=== PATIENT | male | born 1950 | race Caucasian/White ===

== ENCOUNTER → 2019-03-10 12:41 | Outpatient (CLI) | payer MEDICARE, OTHER, SELFPAY ==
--- NOTE | 2019-03-10 | DI.RAD.S_ITS ---
PROCEDURE: XR HAND LT MIN 3V INDICATIONS: LEFT HAND PAIN TECHNIQUE: 3 views of the hand(s) acquired. COMPARISON: None. FINDINGS: Bones: No fractures or dislocations. Osteoarthritic changes along radial aspect of left wrist are seen most prominent involving first CMC joint. No gross bony erosive changes Carpal bones are normally aligned. No suspicious bony lesions. Soft tissues: No suspicious soft tissue calcifications. 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 No fracture or dislocation. No bony erosive changes. Dictated by: Avinash Fuentes M.D. on 03/10/2019 at 17:03 Approved by: Avinash Fuentes M.D. on 03/10/2019 at 17:04
== END ==
PROVIDERS: PCP Family Medicine; Visit Provider Family Medicine
DX: M79.642 Pain in left hand (principal); M18.12 Unilateral primary osteoarthritis of first carpometacarpal joint, left hand
CPT/HCPCS: 73130

== ENCOUNTER → 2020-10-29 12:24 | Outpatient (CLI) | payer MEDICARE, OTHER, SELFPAY ==
--- NOTE | 2020-10-29 | DI.US.S_ITS ---
PROCEDURE: US SCROTUM INDICATIONS: SCROTAL PAIN TECHNIQUE: Real-time scanning was performed of the scrotum and testicles, with image documentation. Color and pulse Doppler interrogation was performed of both testicles. COMPARISON: None. FINDINGS: Right: Testicle is normal in size at 3.4 x 2.7 x 1.5 cm, and homogenous in echotexture. Epididymis is mildly heterogenous. Unremarkable in overall size and morphology. No hydrocele or varicoceles. Overlying scrotal skin is normal in thickness. Left: Testicle is normal in size at 2.6 x 2.1 x 1.7 cm, and homogeneous in echotexture. Epididymis is normal in overall size and morphology. No hydrocele or varicoceles. Overlying scrotal skin is normal in thickness. Doppler: Color and pulse Doppler demonstrate normal and symmetric arterial flow in both testicles. The technologist was unable to demonstrate venous flow in the left testicle. IMPRESSION: Left testicle is slightly smaller compared to the right, as above. Although there is good arterial vascularity in both testes, the technologist was unable to demonstrate venous flow in the left testicle, of uncertain clinical significance Dictated by: Logan Blanco M.D. on 10/29/2020 at 17:02 Approved by: Logan Blanco M.D. on 10/29/2020 at 17:11
== END ==
PROVIDERS: PCP Family Medicine; Referring Provider Urology; Visit Provider Urology
DX: N50.819 Testicular pain, unspecified (principal); N50.82 Scrotal pain
CPT/HCPCS: 76870

== ENCOUNTER → 2021-01-21 09:04 | Outpatient (CLI) | payer MEDICARE, OTHER, SELFPAY ==
--- NOTE | 2021-01-21 | DI.CT.S_ITS ---
PROCEDURE: CT LUMBAR SPINE WO CON INDICATIONS: ABDOMINAL PAIN AND LOW BACK PAIN TECHNIQUE: Noncontrast 3 mm thick sections acquired from the T12 level to the sacrum. Sagittal and coronal reformats were constructed. For radiation dose reduction, the following was used: automated exposure control. COMPARISON: [facility], CT, CT ABDOMEN WO CON, 01/21/2021, 9:14. FINDINGS: Image quality: Excellent. Bones: No acute vertebral body compression fractures. No suspicious lytic or blastic bony lesions. No pars defects. Scoliotic curvature is seen, with a primary levoconvex thoracolumbar component. There is minimal retrolisthesis seen at L2-L3. Minimal anterolisthesis is seen at the L4-L5 level. 5 nonrib-bearing, lumbar type vertebral bodies are seen. There is mild sacralization of the L5 level. Age-appropriate lower thoracic spine degenerative changes are seen. T12-L1: The disc height is well preserved. Partially bridging anterior osteophytes are seen. Moderate disc bulge is seen at this level, with a mild central disc protrusion. Minimal bilateral neural foraminal narrowing can be seen. Mild to moderate central canal narrowing is seen. L1-L2: The disc space is highly narrowed, with a degree bony fusion. Bridging endplate osteophytes can be seen on both sides. Mild generalized disc bulge is seen. Mild to moderate bilateral neural foraminal narrowing can be seen. Mild to moderate central canal narrowing is seen. L2-L3: Moderate loss of disc height is seen. Partially bridging endplate osteophytes are seen. There is calcification/ossification seen of the posterior longitudinal ligament, as on series 10, image 32. Moderate disc bulge is seen, with a central disc protrusion. There is at least moderate bilateral neural foraminal narrowing seen, left worse than right. There is at least moderate central canal narrowing seen at this level, as on series 7, image 49. L3-L4: Mild loss of disc height is seen. Moderate disc bulge is seen, which is eccentric to the right, with a right foraminal disc protrusion. Mild facet joint hypertrophy is seen. There is at least moderate bilateral neural foraminal narrowing seen. At least moderate central canal narrowing is seen at this level, as on series 7, image 61. L4-L5: Mild to moderate loss of disc height is seen. At least moderate disc bulge is seen. There is a central disc protrusion. At least moderate facet hypertrophy is seen at this level. There is moderate to severe bilateral neural foraminal narrowing seen, right worse than left. There is severe central canal narrowing seen at this level. L5-S1: Izyt-fe-ometsxfq loss of disc height is seen. Mild to moderate disc bulge is seen, which is eccentric to the right. Mild facet joint hypertrophy is seen. There is at least moderate bilateral neural foraminal narrowing seen. Mild to moderate central canal narrowing is seen. Soft tissues: No retroperitoneal masses or hematomas. Visualized aorta is normal in caliber. Atherosclerotic calcification is noted. Bariatric surgery can be seen. IMPRESSION: Multiple levels of lumbar spine degenerative change are seen, which are overall worst at the L4-L5 level, where there is severe central canal narrowing and moderate to severe bilateral neural foraminal narrowing. There is prominent narrowing of the disc space at the L1-L2 level, with a degree bony fusion. This may be related to a remote injury. Scoliotic curvature, with a primary levoconvex thoracolumbar component. Incidental note is made of: Bariatric surgery Dictated by: Carlos Manuel Monzon M.D. on 01/21/2021 at 9:09 Approved by: Carlos Manuel Monzon M.D. on 01/21/2021 at 9:15
--- NOTE | 2021-01-21 09:10 | DI.CT.S_ITS ---
PROCEDURE: CT ABDOMEN WO CON INDICATIONS: ABDOMINAL PAIN AND LOW BACK PAIN TECHNIQUE: 5 mm thick sections acquired from the diaphragms to the iliac crests. 5 mm coronal and sagittal reformats were then performed. For radiation dose reduction, the following was used: automated exposure control, adjustment of mA and/or kV according to patient size. COMPARISON: None. FINDINGS: Image quality: Excellent. Lung bases: Lung bases are clear. Heart size is enlarged. There is a small hiatal hernia. Solid organs: Noncontrast evaluation of the liver demonstrates no focal hepatic lesions. The gallbladder is surgically absent. Pancreas is normal in contours without peripancreatic fat stranding or fluid collections. Spleen is normal in size. No adrenal nodules. Kidneys demonstrate no hydronephrosis. There is nonspecific mild perinephric stranding bilaterally. There are 2 right renal cysts. Peritoneum and bowel: Postsurgical changes are demonstrated status post gastric bypass. Visualized bowel loops demonstrate normal wall thickness and caliber. No free fluid or air. Nodes and vessels: No retroperitoneal or mesenteric adenopathy by size criteria. Aorta and inferior vena cava are normal in size. Bones: No suspicious bony lesions. There there is multilevel mild to moderate degenerative disc disease throughout the visualized lower thoracic and upper lumbar spine. No vertebral body compression fractures. Miscellaneous: No ventral hernias. IMPRESSION: 1. Postsurgical changes status post gastric bypass without evidence of bowel obstruction. 2. Small hiatal hernia. Dictated by: Floyd Lund M.D. on 01/21/2021 at 11:04 Approved by: Floyd Lund M.D. on 01/21/2021 at 11:10
== END ==
PROVIDERS: PCP Family Medicine; Referring Provider Family Medicine; Visit Provider Family Medicine
DX: R10.9 Unspecified abdominal pain (principal); K44.9 Diaphragmatic hernia without obstruction or gangrene; M54.50 Low back pain, unspecified; M47.816 Spondylosis without myelopathy or radiculopathy, lumbar region; M47.817 Spondylosis without myelopathy or radiculopathy, lumbosacral region; M48.061 Spinal stenosis, lumbar region without neurogenic claudication; M48.07 Spinal stenosis, lumbosacral region; M41.85 Other forms of scoliosis, thoracolumbar region; Z98.84 Bariatric surgery status; Z90.49 Acquired absence of other specified parts of digestive tract
CPT/HCPCS: 72131; 74150

== ENCOUNTER → 2021-06-16 14:44 | Outpatient (CLI) | payer MEDICARE, OTHER, SELFPAY ==
--- NOTE | 2021-06-16 14:50 | DI.MRI.S_ITS ---
PROCEDURE: MR CERVICAL SPINE WO CON INDICATIONS: Cervicalgia;Spinal stenosis, lumbar region TECHNIQUE: Noncontrast sagittal T1 spin echo and T2 fast spin echo, sagittal STIR, foraminal oblique sagittal T2 fast spin echo, and axial gradient echo or T2 fast spin echo through the cervical spine. COMPARISON: None. FINDINGS: Image quality: Excellent. Alignment and Curvature: There is trace retrolisthesis of C4 on C5, C5 on C6 and trace anterolisthesis of C7 on T1. Bone Marrow: Marrow demonstrates normal overall signal. Minimal reactive endplate changes are present at C4-5, C5-6 and C6-7. Spinal Cord: Visualized spinal cord has normal size and signal. No cerebellar tonsillar herniation. Paraspinous Soft Tissues: No paravertebral masses. Prevertebral soft tissues are normal in thickness. Discs: Severe desiccation is present at C4-5, npkq-vy-[id number] at C5-6, C6-7. C2-C3: No disc bulge, spinal stenosis or foraminal narrowing. C3-C4: Mild disc bulge with slight effacement of the anterior thecal sac. Minimal bilateral foraminal narrowing with uncovertebral hypertrophy. C4-C5: Mild disc bulge with mild spinal stenosis. Moderate bilateral foraminal narrowing with uncovertebral hypertrophy. C5-C6: Mild disc bulge with slight effacement of the anterior thecal sac. Fijt-lq-xcebngyl bilateral foraminal narrowing with uncovertebral hypertrophy. C6-C7: Mild disc bulge with mild spinal stenosis. Mild left and iizg-oa-nxrrpvcm right foraminal narrowing with uncovertebral hypertrophy. C7-T1: No disc bulge or spinal stenosis. Mild bilateral foraminal narrowing, right greater than left with uncovertebral hypertrophy. IMPRESSION: Multilevel degenerative changes. Multilevel spinal stenosis most severe at C4-5 and C6-7 secondary to disc bulge. Multilevel foraminal narrowing most severe at C4-5 secondary to uncovertebral arthropathy. Dictated by: Rosetta Allen M.D. on 06/16/2021 at 17:08 Approved by: Rosetta Allen M.D. on 06/16/2021 at 17:11
--- NOTE | 2021-06-16 14:50 | DI.MRI.S_ITS ---
PROCEDURE: MR LUMBAR SPINE WO CON INDICATIONS: Cervicalgia;Spinal stenosis, lumbar region TECHNIQUE: Noncontrast sagittal T1 spin echo and T2 fast echo, sagittal STIR, axial T1 and T2 fast spin echo through the lumbar spine. In cases with scoliosis, additional coronal T2 fast spin echo may be performed. COMPARISON: [facility], CT, CT LUMBAR SPINE WO CON, 01/21/2021, 9:14. FINDINGS: Image quality: Excellent. Alignment and Curvature: Trace degenerative anterolisthesis of L4 on L5. Bone Marrow: Marrow is of normal overall signal. No acute vertebral body compression fractures. Spinal Cord: Conus medullaris terminates at the T12-L1 level. Visualized cord demonstrates normal signal and size. Paraspinous Soft Tissues: No paravertebral masses. T12-L1: Disc bulge. Mild facet hypertrophy. No canal stenosis or foraminal stenosis. L1-L2: Severe chronic disc height loss. No canal stenosis or foraminal stenosis. L2-L3: Disc bulge. Facet and ligament hypertrophy. Mild canal stenosis. No significant foraminal stenosis. L3-L4: Disc bulge. Facet hypertrophy. Moderate canal stenosis. Tauk-pm-revkjppk bilateral foraminal stenosis. L5. L4-L5: Severe multifactorial canal stenosis secondary to facet arthropathy, mild degenerative anterolisthesis of L4 on L5, and posterior disc bulge. Dbny-nf-lmwbnbcd bilateral foraminal narrowing with mild flattening deformity on the exiting bilateral L4 nerve roots. L5-S1: Disc bulge. Facet hypertrophy. Mild canal stenosis. No significant foraminal stenosis. IMPRESSION: 1. Multilevel degenerative change with multilevel facet arthropathy. 2. Canal stenosis is mild at L2-L3, moderate at L3-L4, severe at L4-L5, and mild at L5-S1. Dictated by: Christopher Mar M.D. on 06/16/2021 at 17:20 Approved by: Christopher Mar M.D. on 06/16/2021 at 17:25
== END ==
PROVIDERS: PCP Family Medicine; Referring Provider Neurological Surgery; Visit Provider Neurological Surgery
DX: M47.12 Other spondylosis with myelopathy, cervical region (principal); M50.11 Cervical disc disorder with radiculopathy, high cervical region; M48.02 Spinal stenosis, cervical region; M47.816 Spondylosis without myelopathy or radiculopathy, lumbar region; M48.062 Spinal stenosis, lumbar region with neurogenic claudication
CPT/HCPCS: 72141; 72148

== ENCOUNTER → 2021-07-04 10:15 | Outpatient (CLI) | payer MEDICARE, OTHER, SELFPAY ==
--- NOTE | 2021-07-04 | DI.CT.S_ITS ---
PROCEDURE: CT LUMBAR SPINE WO CON INDICATIONS: SPINAL STENOSIS, LUMBAR REGION TECHNIQUE: Noncontrast 3 mm thick sections acquired from the T12 level to the sacrum. Sagittal and coronal reformats were constructed. For radiation dose reduction, the following was used: automated exposure control. COMPARISON: 06/16/2021 MRI lumbar spine. FINDINGS: There is approximately a 5 millimeter degenerative spondylolisthesis of L4 on L5. No pars defect. Otherwise normal alignment. Vertebral body heights maintained. No suspicious lytic or blastic osseous lesion. Prevertebral and paraspinous soft tissues are unremarkable in the absence of IV contrast. Aortic atherosclerosis. T12-L1: Diffuse disc bulge flattens the ventral thecal sac. No osseous spinal canal or neural foraminal stenosis. Mild facet hypertrophy. L1-L2: Diffuse disc bulge flattens the ventral thecal sac and along with buckling of the ligamentum flavum produces mild spinal canal stenosis. There is mild facet hypertrophy. These factors combine to produce mild bilateral neural foraminal stenosis. L2-L3: Diffuse disc bulge with a superimposed broad-based posterior disc protrusion and calcified annular component in the central/paracentral zones. This combines with bulky facet hypertrophy and buckling of the ligamentum flavum to produce moderate spinal canal stenosis, better seen on comparison MRI. These factors combine to produce mild to moderate bilateral neural foraminal stenosis. L3-L4: Bulky facet hypertrophy, buckling of the ligamentum flavum, and a broad-based posterior disc protrusion combine to produce moderate-severe spinal canal stenosis. Moderate to severe bilateral neural foraminal stenosis due to a combination of these factors also. L4-L5: Severe spinal canal stenosis due to a combination of pseudo bulge related to the anterolisthesis in conjunction with a true disc bulge and protrusion as well as bulky facet hypertrophy and buckling of the ligamentum flavum. Moderate to severe bilateral neural foraminal stenosis with flattening of the exiting bilateral L4 nerve roots. Severe facet hypertrophy with subchondral cystic change and subchondral sclerosis. L5-S1: Moderate subarticular zone stenosis with mass effect on the descending S1 nerve roots in both subarticular zones. Mild bilateral neural foraminal stenosis. IMPRESSION: Multilevel multifactorial degenerative changes, worst at L4-L5 where there is severe spinal canal and neural foraminal stenosis. Dictated by: Anthony Osullivan M.D. on 07/04/2021 at 16:06 Approved by: Anthony Osullivan M.D. on 07/04/2021 at 16:15
== END ==
PROVIDERS: PCP Family Medicine; Referring Provider Neurological Surgery; Visit Provider Neurological Surgery
DX: M48.062 Spinal stenosis, lumbar region with neurogenic claudication (principal); M47.816 Spondylosis without myelopathy or radiculopathy, lumbar region
CPT/HCPCS: 72131

== ENCOUNTER 2021-10-21 08:35 | Inpatient (IN) | payer MEDICARE, OTHER, SELFPAY ==
[2021-10-21] VITALS (13 sets, daily range): BP systolic 126–165; BP diastolic 60–78; PULSE 63–76; RESP 16–20; TEMP 35.9–36.8; O2SAT 97–100; BMI 42.8
--- NOTE | 2021-10-21 09:01 | ED_ITS ---
HPI - Abdominal Pain General Chief Complaint: Abdominal Pain Stated Complaint: Thinks ulcer- black stool, weak Time Seen by Provider: 10/21/21 08:51 History of Present Illness HPI narrative: Patient is a 71-year-old male history of hypertension hyperlipidemia Tonya-en-Y surgery Uatsdin presenting today with 2 episodes of black tarry stool. He said he had 1 very large 1 yesterday and 1 the day before. He felt weak and lightheaded yesterday but wanted to wait till this morning. This morning he felt even worse he has not had any bowel movement this morning. He has some ep igastric pain and discomfort. He feels overall fatigued and weak. No significant chest pain or shortness of breath. No fevers or chills. Has not taken any Pepto-Bismol. He does not want any sort of blood transfusion. Related Data Home Medications Medication Instructions Recorded Confirmed amlodipine 5 mg tablet 5 mg PO DAILY 01/02/21 10/21/21 aspirin 81 mg tablet,delayed 81 mg PO DAILY 01/02/21 10/21/21 release (Adult Aspirin Regimen) atorvastatin 40 mg tablet 40 mg PO DAILY 01/02/21 10/21/21 lisinopril 5 mg tablet 5 mg PO BID 01/02/21 10/21/21 metoprolol succinate 50 mg 50 mg PO DAILY 01/02/21 10/21/21 tablet,extended release 24 hr voaltyifpgga-idw-dqklc acid-vit 1 tab PO DAILY 01/02/21 10/21/21 K-lycop 400 mcg-20 mcg-370 mcg tablet (Men's 50 Plus Multivitamin) omega-3 fatty acids 1,250 mg PO DAILY 01/02/21 10/21/21 All Day Calcium 1 tab PO BID 10/21/21 10/21/21 temazepam 30 mg capsule 30 mg PO BEDTIME PRN Sleep 10/21/21 10/21/21 Allergies Allergy/AdvReac Type Severity Reaction Status Date / Time No Known Drug Allergies Allergy Unverified 01/02/21 13:35 Review of Systems Review of Systems Narrative: GENERAL: Denies chills, fatigue, malaise, fever, sweats, travel HEENT: Denies sinus pain, ear pain, sore throat, difficulty swallowing, neck pain RESPIRATORY: Denies dyspnea, cough, wheezing, hemoptysis, sputum. CARDIOVASCULAR: Denies chest pain, palpitations, orthopnea, edema GASTROINTESTINAL: See HPI : Denies dysuria, frequency, incontinence, hematuria, urinary retention, flank pain. MUSCULOSKELETAL: Denies weakness, joint pain, or bony pain SKIN: No rash, no erythema, no pruritus NEUROLOGIC: Denies weakness, dizziness, headache, numbness, change in speech, confusion PSYCHIATRIC: No concerning psychosocial issues. 12 point review of systems is negative except for those stated above and HPI Patient History Medical History Hyperlipidemia Hypertension Ventricular tachycardia Surgical History H/O gastric bypass H/O hernia repair H/O vasectomy History of lithotripsy Hx laparoscopic cholecystectomy Family History Father Hypertension Diabetes mellitus Cancer Brother Hypertension Social History marital status: household members: spouse occupational status: employed Smoking Status: Never smoker alcohol intake: never Smoking Status: Never smoker Exam Initial Vital Signs Initial Vital Signs: Vital Signs Pulse Rate 71 10/21/21 08:49 Pulse Oximetry 99 10/21/21 08:49 GENERAL: Alert pleasant 71-year-old male and in no acute distress. HEENT: Head atraumatic,EOMI, pupils reactive, face symmetric, moist mucous membranes CARDIOVASCULAR: Regular rate and rhythm without murmurs, rubs or gallops. RESPIRATORY: Breath sounds equal bilaterally, no wheezes rales or rhonchi. ABDOMEN: Soft, mild epigastric pain no guarding no rebound RECTAL: Hemoccult-positive black stool EXTREMITIES: Normal range of motion, no clubbing or edema. Neurovascularly in tact NEUROLOGICAL: Alert and oriented x4.Normal gait and speech. SKIN: Warm, dry, no laceration, no petechiae, no rashes or lesions. Course Orders Ordered: ED Orders 10/21/21 09:01 CT abdomen pelvis wo con Stat EKG-12 Lead Stat 10/21/21 09:50 Complete Blood Count AUTO DIFF Stat Comprehensive Metabolic Panel Stat Lactate (Lactic Acid) Stat Lipase Stat Partial Thromboplastin Time Stat Prothrombin Time INR Stat Troponin & CK Cardiac Panel Stat 10/21/21 11:40 Hemoglobin and Hematocrit Stat 10/21/21 11:46 COVID19 -Nasal RAPID/Pre-Proc Stat Ondansetron HCl (Ondansetron 4 Mg/2 Ml Inj) 4 mg IV Q8HR PRN PRN Reason: Nausea And Vomiting Pantoprazole Sodium (Pantoprazole 40 Mg Vial) 40 mg IV BID EMBER Temazepam (Temazepam 15 Mg Capsule) 30 mg PO BEDTIME PRN PRN Reason: Sleep Discontinued Medications Iron Sucrose 100 mg/ Sodium (Chloride) 105 mls @ 420 mls/hr IV NOW ONE Stop: 10/21/21 12:29 Last Admin: 10/21/21 13:12 Dose: 420 mls/hr Documented By: ABRAHAN Pantoprazole Sodium (Pantoprazole 40 Mg Vial) 40 mg IV NOW ONE Stop: 10/21/21 09:02 Last Admin: 10/21/21 09:46 Dose: 40 mg Documented By: RAFFI Vital Signs Vital signs: Vital Signs - 8 hr 10/21/21 10:00 Pulse Rate 64 Pulse Oximetry 99 MDM - Abdominal Pain Lab Data Result diagrams: 10/21/21 11:40 10/21/21 09:50 Labs: Lab Results 10/21/21 10/21/21 10/21/21 Range/Units 09:50 09:50 09:50 WBC 6.7 (4.5-11.0) X10^3/uL RBC 3.50 L (4.5-5.9) X10^6/uL Hgb 8.6 L (13.5-17.5) g/dL Hct 26.5 L (41-53) % MCV 75.5 L (80-100) fL MCH 24.6 L (26-34) PG MCHC 32.6 (30-36) % RDW 16.1 H (11.6-14.8) % Plt Count 206 (150-400) X10^3/uL Neut % (Auto) 71.2 (50-75) % Lymph % (Auto) 18.6 L (25-40) % Dickinson % (Auto) 8.8 (3-14) % Eos % (Auto) 1.0 L (2-4) % Baso % (Auto) 0.4 (0-2) % Neut # (Auto) 4700 (9925-7824) /uL Lymph # (Auto) 1200 (7458-4092) /uL Dickinson # (Auto) 600 (0-900) /uL Eos # (Auto) 100 (0-450) /uL Baso # (Auto) 0 (0-100) /uL PT 12.2 (10.1-12.7) SECONDS INR 1.1 (0.9-1.3) APTT 32 (26.4-36.2) SECONDS Sodium 140 (137-145) mmol/L Potassium 4.2 (3.4-5.1) mmol/L Chloride 107 (98-107) mmol/L Carbon Dioxide 30 (22-32) mmol/L BUN 25 H (9-20) mg/dL Creatinine 0.71 (0.66-1.25) mg/dL Estimated GFR > 60 (>60) mL/min BUN/Creatinine Ratio 35.2 H (6-22) Glucose 87 (80-110) mg/dL Lactate (0.7-2.1) mmol/L Calcium 8.4 (8.4-10.2) mg/dL Total Bilirubin 0.8 (0.2-1.3) mg/dL AST 25 (17-59) IU/L ALT 15 (<50) IU/L Alkaline Phosphatase 63 (38-126) U/L Total Creatine Kinase 75 (55-170) U/L CK-MB (CK-2) TNP CK-MB (CK-2) Rel Index TNP Troponin I 0.012 (0.01-0.034) ng/mL Total Protein 6.3 (6.3-8.2) g/dL Albumin 3.4 L (3.5-5.0) g/dL Globulin 2.9 (1.7-4.1) g/dL Albumin/Globulin Ratio 1.2 (1.0-2.8) Lipase 98 (23-300) U/L 10/21/21 10/21/21 Range/Units 09:50 11:40 WBC (4.5-11.0) X10^3/uL RBC (4.5-5.9) X10^6/uL Hgb 8.0 L (13.5-17.5) g/dL Hct 25.1 L (41-53) % MCV (80-100) fL MCH (26-34) PG MCHC (30-36) % RDW (11.6-14.8) % Plt Count (150-400) X10^3/uL Neut % (Auto) (50-75) % Lymph % (Auto) (25-40) % Dickinson % (Auto) (3-14) % Eos % (Auto) (2-4) % Baso % (Auto) (0-2) % Neut # (Auto) (8000-3850) /uL Lymph # (Auto) (0428-8158) /uL Dickinson # (Auto) (0-900) /uL Eos # (Auto) (0-450) /uL Baso # (Auto) (0-100) /uL PT (10.1-12.7) SECONDS INR (0.9-1.3) APTT (26.4-36.2) SECONDS Sodium (137-145) mmol/L Potassium (3.4-5.1) mmol/L Chloride (98-107) mmol/L Carbon Dioxide (22-32) mmol/L BUN (9-20) mg/dL Creatinine (0.66-1.25) mg/dL Estimated GFR (>60) mL/min BUN/Creatinine Ratio (6-22) Glucose (80-110) mg/dL Lactate 0.7 (0.7-2.1) mmol/L Calcium (8.4-10.2) mg/dL Total Bilirubin (0.2-1.3) mg/dL AST (17-59) IU/L ALT (<50) IU/L Alkaline Phosphatase (38-126) U/L Total Creatine Kinase (55-170) U/L CK-MB (CK-2) CK-MB (CK-2) Rel Index Troponin I (0.01-0.034) ng/mL Total Protein (6.3-8.2) g/dL Albumin (3.5-5.0) g/dL Globulin (1.7-4.1) g/dL Albumin/Globulin Ratio (1.0-2.8) Lipase (23-300) U/L Imaging Data CT scan - abdomen/pelvis: Radiologist's Impression: CT Scan Report Signed Patient: Mesfin Fam MR#: [id number] : 1950 Acct:[id number] Age/Sex: 71 / M Date of Service: 10/21/21 Loc: ED Accession Number: [id number] ?? Procedure: CT abdomen pelvis wo con Ordering Provider: Harini Aguilar D.O. PROCEDURE:? CT ABDOMEN PELVIS WO CON ? INDICATIONS:? Abdominal pain, Tonya-en-Y with black stool ? TECHNIQUE:? After the administration of oral contrast, 5 mm thick sections acquired from the diaphragms to the symphysis.? 5 mm coronal and sagittal reformats were performed.? For radiation dose reduction, the following was used:? automated exposure control, adjustment of mA and/or kV according to patient size.? ? COMPARISON:? [facility], CT, CT ABDOMEN WO CON, 01/21/2021, 9:14. ? FINDINGS:? Image quality:? Excellent.? ? ABDOMEN:? Lung bases:? Lung bases are clear.? Heart size is normal.? ? Solid organs:? Liver is normal in size.? Gallbladder is surgically absent .? Pancreas is normal in size.? Spleen is normal in size.? No adrenal nodules.? Both kidneys are normal in size, without hydronephrosis .? There is a nonobstructing 1 mm calculus within the right kidney.? There is a low-density cyst within the right renal cortex. ? Peritoneum and bowel:? Patient is status post gastric surgery.? Bowel loops demonstrate normal wall thickness and caliber.? There are scattered sigmoid diverticula. No evidence for diverticulitis. The appendix is thin walled and gas filled. No free fluid or air.? ? Nodes and vessels:? No retroperitoneal or mesenteric adenopathy by size criteria.? Aorta and inferior vena cava are normal in size.? ? Miscellaneous:? No ventral hernias.? ? ? PELVIS:? Genitourinary:? Bladder wall thickness is normal.? ? Miscellaneous:? No inguinal adenopathy.? There is a small fat containing right inguinal hernia..? ? Bones:? No suspicious bony lesions.? No vertebral body compression fractures.? Right hip arthroplasty is grossly unremarkable.? Patient is status post posterior fixation of the lower lumbar spine.? Hardware appears grossly intact. ? IMPRESSION:? ? 1. No acute intra-abdominal findings.? Normal appendix.? Diverticulosis.? No acute diverticulitis. ? 2. Nonobstructive right nephrolithiasis. ? Dictated by: Jaylyn Cano M.D. on 10/21/2021 at 11:09 ? ? Approved by: Jaylyn Cano M.D. on 10/21/2021 at 11:13 ? [facility] Narrative Medical decision making narrative: Patient does have history of 2 episodes of black stool and fatigue. He is found to be guaiac positive and anemic. He is hemodynamically stable. Not tachycardic or hypotensive. He is given Protonix. CT does not show any abnormality. Surgery has been consulted Dr. Solis and agrees with consultation is. Hospitalist Dr. Hadley admits patient Discharge Plan Departure Patient Disposition: Admitted as Observation Clinical Impression: Acute GI bleeding Admit Date/Time: 10/21/21 11:43 Admit Provider: Luís Hadley
--- NOTE | 2021-10-21 09:01 | DI.CT.S_ITS ---
PROCEDURE: CT ABDOMEN PELVIS WO CON INDICATIONS: Abdominal pain, Tonya-en-Y with black stool TECHNIQUE: After the administration of oral contrast, 5 mm thick sections acquired from the diaphragms to the symphysis. 5 mm coronal and sagittal reformats were performed. For radiation dose reduction, the following was used: automated exposure control, adjustment of mA and/or kV according to patient size. COMPARISON: [facility], CT, CT ABDOMEN WO CON, 01/21/2021, 9:14. FINDINGS: Image quality: Excellent. ABDOMEN: Lung bases: Lung bases are clear. Heart size is normal. Solid organs: Liver is normal in size. Gallbladder is surgically absent . Pancreas is normal in size. Spleen is normal in size. No adrenal nodules. Both kidneys are normal in size, without hydronephrosis . There is a nonobstructing 1 mm calculus within the right kidney. There is a low-density cyst within the right renal cortex. Peritoneum and bowel: Patient is status post gastric surgery. Bowel loops demonstrate normal wall thickness and caliber. There are scattered sigmoid diverticula. No evidence for diverticulitis. The appendix is thin walled and gas filled. No free fluid or air. Nodes and vessels: No retroperitoneal or mesenteric adenopathy by size criteria. Aorta and inferior vena cava are normal in size. Miscellaneous: No ventral hernias. PELVIS: Genitourinary: Bladder wall thickness is normal. Miscellaneous: No inguinal adenopathy. There is a small fat containing right inguinal hernia.. Bones: No suspicious bony lesions. No vertebral body compression fractures. Right hip arthroplasty is grossly unremarkable. Patient is status post posterior fixation of the lower lumbar spine. Hardware appears grossly intact. IMPRESSION: 1. No acute intra-abdominal findings. Normal appendix. Diverticulosis. No acute diverticulitis. 2. Nonobstructive right nephrolithiasis. Dictated by: Jaylyn Cano M.D. on 10/21/2021 at 11:09 Approved by: Jaylyn Cano M.D. on 10/21/2021 at 11:13
[2021-10-21] MEDS: PANTOPRAZOLE 40 MG VIAL IV ×2 (09:46→21:07)
[2021-10-21 09:56] LABS: Add Manual Diff / Slide Review NO; Basophils Absolute Auto 0 /uL (0-100); Basophils Percent Auto 0.4 % (0-2); Eosinophils Absolute Auto 100 /uL (0-450); Hematocrit 26.5 % (41-53); Hemoglobin 8.6 g/dL (13.5-17.5); Lymphocytes Absolute Auto 1200 /uL (1100-4500); Lymphocytes Percent Auto 18.6 % (25-40); Mean Corpuscular HGB Conc 32.6 % (30-36); Mean Corpuscular Hemoglobin 24.6 PG (26-34); Mean Corpuscular Volume 75.5 fL (80-100); Monocytes Absolute Auto 600 /uL (0-900); Monocytes Percent Auto 8.8 % (3-14); Neutrophils Absolute Auto 4700 /uL (1500-7000); Neutrophils Percent Auto 71.2 % (50-75); Platelet Count 206 X10^3/uL (150-400); Red Cell Distribution Width 16.1 % (11.6-14.8); White Blood Cell Count 6.7 X10^3/uL (4.5-11.0)
[2021-10-21 10:06] LABS: INR 1.1 (0.9-1.3); Prothrombin Time 12.2 SECONDS (10.1-12.7)
[2021-10-21 10:08] LABS: PTT Partial Thromboplastin Tim 32 SECONDS (26.4-36.2)
[2021-10-21 10:09] LABS: Lactate (Lactic Acid) 0.7 mmol/L (0.7-2.1)
[2021-10-21 10:10] LABS: Alanine Aminotransferase 15 IU/L (<50); Albumin 3.4 g/dL (3.5-5.0); Albumin Globulin Ratio 1.2 (1.0-2.8); Alkaline Phosphatase 63 U/L (38-126); Aspartate Aminotransferase 25 IU/L (17-59); BUN Creatinine Ratio 35.2 (6-22); Bilirubin Total 0.8 mg/dL (0.2-1.3); Blood Urea Nitrogen 25 mg/dL (9-20); Calcium 8.4 mg/dL (8.4-10.2); Carbon Dioxide 30 mmol/L (22-32); Chloride 107 mmol/L (98-107); Creatine Kinase 75 U/L (55-170); Estimated Glomerular Filt Rate > 60 mL/min (>60); Globulin 2.9 g/dL (1.7-4.1); Glucose 87 mg/dL (80-110); HEMOLYSIS < 15 (0-50); Lipase 98 U/L (23-300); Potassium 4.2 mmol/L (3.4-5.1); Sodium 140 mmol/L (137-145); Total Protein 6.3 g/dL (6.3-8.2)
[2021-10-21 10:22] LABS: Troponin I 0.012 ng/mL (0.01-0.034)
[2021-10-21 11:45] LABS: Hematocrit 25.1 % (41-53)
[2021-10-21 12:23] LABS: COVID19 -Nasal RAPID Negative (Negative)
[2021-10-21] MEDS: IRON SUCROSE 100 MG in SODIUM CHLORIDE 0.9% 100 ML 420 MG IV (13:12)
--- NOTE | 2021-10-21 14:00 | P.HP_ITS ---
History of Present Illness History of Present Illness Date Patient Seen: 10/21/21 Time Patient Seen: 14:00 Chief complaint: Thinks ulcer- black stool, weak Narrative: This is a 71-year-old male with a past medical history of hypertension, hyperlipidemia, NSVT, and obesity with prior Tonya-en-Y gastric bypass who presents with 2 days of dark stools and a few weeks of generalized weakness. Patient states that he noticed some darkened stools 2 days ago, which turned to frankly black stool yesterday. He has not had a bowel movement since yesterday, and had some mild reflux symptoms over the last couple of days as well. He is also noticed some generalized fatigue over the past week or 2, and recent labs with his primary care provider noted a slight anemia as well. He reports prior colonoscopy 3 years ago which was unremarkable. He has never had an EGD after his Tonya-en-Y, and denies any known upper GI bleeding. He does endorse recent back surgery, with NSAID use only a couple of times about a month ago. He did note some possibly darkened stools after that and started a trial of omeprazole which improved his stool color at that time. He took approximately 14 days of omeprazole, ending a few weeks ago, and had a recurrence as noted above. He is not currently taking omeprazole. He denies any fevers, chills, chest pain, diaphoresis, shortness of breath, or dyspnea on exertion. He does note an increase in his restless leg syndrome symptoms over the past 4-5 weeks. In the emergency room, he was mildly hypertensive but the remainder of his vital signs were unremarkable. Initial laboratory evaluation was notable for a hemoglobin of 8.6 with a microcytic MCV, which down trended to 8.0 on repeat examination a few hours later. Coagulation studies were unremarkable. Chemistry panel was further unremarkable, including a negative troponin. COVID- [address] abdomen and pelvis was also performed which did not reveal any acute pathology. 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 Patient History Medical History Hyperlipidemia Hypertension Ventricular tachycardia Surgical History H/O gastric bypass H/O hernia repair H/O vasectomy History of lithotripsy Hx laparoscopic cholecystectomy Family & Social History Family History Father Hypertension Diabetes mellitus Cancer Brother Hypertension Social History: household members spouse Prior Living Arrangements House Safety & Behavioral: Feels Safe in Current Yes Environment Been Physically Hurt or No Threatened By a Person Tobacco & Substance use: Smoking Status Never smoker alcohol intake never Substance Use Type does not use Meds Home Medications and Allergies Home Medications Medication Instructions Recorded Confirmed Type amlodipine 5 mg tablet 5 mg PO DAILY 01/02/21 10/21/21 History aspirin 81 mg tablet,delayed 81 mg PO DAILY 01/02/21 10/21/21 History release (Adult Aspirin Regimen) atorvastatin 40 mg tablet 40 mg PO DAILY 01/02/21 10/21/21 History lisinopril 5 mg tablet 5 mg PO BID 01/02/21 10/21/21 History metoprolol succinate 50 mg 50 mg PO DAILY 01/02/21 10/21/21 History tablet,extended release 24 hr yvbcejnmcycm-ahc-yuhqu acid-vit 1 tab PO DAILY 01/02/21 10/21/21 History K-lycop 400 mcg-20 mcg-370 mcg tablet (Men's 50 Plus Multivitamin) omega-3 fatty acids 1,250 mg PO DAILY 01/02/21 10/21/21 History All Day Calcium 1 tab PO BID 10/21/21 10/21/21 History temazepam 30 mg capsule 30 mg PO BEDTIME PRN Sleep 10/21/21 10/21/21 History Allergies Allergy/AdvReac Type Severity Reaction Status Date / Time No Known Drug Allergies Allergy Unverified 01/02/21 13:35 Review of Systems Review of Systems Narrative: All other systems reviewed with the patient and are negative unless otherwise stated. Exam Vital Signs (past 8 hours): - 10/21/21 09:16 10/21/21 08:49 10/21/21 08:50 Temperature 98.0 F Pulse Rate 70 71 76 Respiratory Rate 18 Blood Pressure 150/67 H Pulse Oximetry 99 99 99 Oxygen Delivery Method Room Air Oxygen Flow Rate 10/21/21 08:50 10/21/21 09:00 10/21/21 09:01 Temperature Pulse Rate 67 Respiratory Rate Blood Pressure 150/67 H 140/67 Pulse Oximetry 98 Oxygen Delivery Method Oxygen Flow Rate 10/21/21 09:01 10/21/21 09:30 10/21/21 10:00 Temperature Pulse Rate 66 65 64 Respiratory Rate Blood Pressure Pulse Oximetry 98 100 99 Oxygen Delivery Method Oxygen Flow Rate 10/21/21 11:47 10/21/21 11:48 10/21/21 11:48 Temperature Pulse Rate 63 Respiratory Rate Blood Pressure 139/69 Pulse Oximetry 99 100 Oxygen Delivery Method Oxygen Flow Rate 10/21/21 12:30 Temperature 96.6 F L Pulse Rate 66 Respiratory Rate 20 Blood Pressure 165/77 H Pulse Oximetry 99 Oxygen Delivery Method Oxygen Flow Rate 0 Oxygen Delivery Method Room Air Oxygen Flow Rate 0 Narrative Exam Narrative: General:? Patient is well developed and well nourished, in no distress at this time. Slight pallor, obese with BMI 42.8. HEENT:? Normocephalic, atraumatic, extraocular muscles intact, oral pharynx is clear and mucous membranes are moist. Neck: supple and symmetric, trachea is midline, no cervical adenopathy. Chest:? Normal AP diameter and contour without kyphoscoliosis, no tachypnea, equal chest rise bilaterally. Lungs:? CTA b/l no wheezing rhonchi or rales. Cardio:?RRR no m/r/g. Abdomen: S NT ND. No CVA tenderness. Musculoskeletal:? Muscle strength and tone are equal within normal limits, no deformity. Extremities: No edema or joint effusions. No cyanosis or clubbing. Skin:? Pale,? Warm to touch,dry and intact without rashes, ulcerations or petechiae.? Neuro:? Alert and orientated x3,? sensation to touch intact in all extremities, no gross deficits noted of cranial nerves. Psych:? Patient has a well-kept appearance, appropriate affect, mental status a ttitude thought context and judgment are appropriate for age. Objective ECG Impression: NSR, incomplete LBBB as interpreted by me. No ST or T wave anomalies. Labs Result Diagrams: 10/21/21 11:40 10/21/21 09:50 Labs: Laboratory Results - last 24 hr 10/21/21 10/21/21 10/21/21 09:50 09:50 09:50 WBC 6.7 RBC 3.50 L Hgb 8.6 L Hct 26.5 L MCV 75.5 L MCH 24.6 L MCHC 32.6 RDW 16.1 H Plt Count 206 Neut % (Auto) 71.2 Lymph % (Auto) 18.6 L Ceiba % (Auto) 8.8 Eos % (Auto) 1.0 L Baso % (Auto) 0.4 Neut # (Auto) 4700 Lymph # (Auto) 1200 Ceiba # (Auto) 600 Eos # (Auto) 100 Baso # (Auto) 0 PT 12.2 INR 1.1 APTT 32 Sodium 140 Potassium 4.2 Chloride 107 Carbon Dioxide 30 BUN 25 H Creatinine 0.71 Estimated GFR > 60 BUN/Creatinine Ratio 35.2 H Glucose 87 Lactate Calcium 8.4 Total Bilirubin 0.8 AST 25 ALT 15 Alkaline Phosphatase 63 Total Creatine Kinase 75 CK-MB (CK-2) TNP CK-MB (CK-2) Rel Index TNP Troponin I 0.012 Total Protein 6.3 Albumin 3.4 L Globulin 2.9 Albumin/Globulin Ratio 1.2 Lipase 98 SARS-CoV-2 (PCR) 10/21/21 10/21/21 10/21/21 09:50 11:40 11:46 WBC RBC Hgb 8.0 L Hct 25.1 L MCV MCH MCHC RDW Plt Count Neut % (Auto) Lymph % (Auto) Ceiba % (Auto) Eos % (Auto) Baso % (Auto) Neut # (Auto) Lymph # (Auto) Ceiba # (Auto) Eos # (Auto) Baso # (Auto) PT INR APTT Sodium Potassium Chloride Carbon Dioxide BUN Creatinine Estimated GFR BUN/Creatinine Ratio Glucose Lactate 0.7 Calcium Total Bilirubin AST ALT Alkaline Phosphatase Total Creatine Kinase CK-MB (CK-2) CK-MB (CK-2) Rel Index Troponin I Total Protein Albumin Globulin Albumin/Globulin Ratio Lipase SARS-CoV-2 (PCR) Negative Assessment & Plan Assessment & Plan narrative: 1. Acute blood loss anemia, secondary to likely upper GI bleeding. - NPO for now, start cld depending on general surgery consultation for possible EGD. - continue IV PPI BID - trend h/h - suspect related to recent NSAID use in setting of prior tonya-en-y bypass. 2. history of tonya-en-y, obesity with BMI 42.8 - consider dietary consultation - obesity places patient at higher risk of morbidity and mortality from bleeding 3. HTN, chronic - hold home medications for now, except betablocker given blood loss anemia. 4. HLD, chronic - continue home statin 5. History of NSVT - continue home metorpolol - monitor with telemetry Code: Full, surrogate is patient's spouse Dispo: Admit under observation status, pending blood count trends. DVT: SCD, no pharmacological I have utilized all available immediate resources to obtain, update, or review the patient's current medications. COVID-19 COVID-19 status: Negative Time Spent With Patient Critical Care time: I spent a total of [] minutes of critical care time on this patient's care today; this time is exclusive of procedural time. Quality VTE Deep Vein Thrombosis/Pulmonary Embolism Present on Admission: No MIPS - Admit I confirm the patient?s Advance Care Plan is present, Code status is documented, Surrogate decision maker is in patient?s record [If Yes, STOP here]: Yes
[2021-10-21 20:18] LABS: Hematocrit 26.5 % (41-53); Hemoglobin 8.6 g/dL (13.5-17.5)
[2021-10-21] MEDS: TEMAZEPAM 15 MG CAPSULE 30 MG PO (22:47)
[2021-10-22] VITALS (18 sets, daily range): BP systolic 139–163; BP diastolic 72–90; PULSE 60–91; RESP 12–20; TEMP 35.8–36.6; O2SAT 94–100; BMI 42.8
[2021-10-22 05:18] LABS: Add Manual Diff / Slide Review NO; Basophils Absolute Auto 0 /uL (0-100); Basophils Percent Auto 0.4 % (0-2); Eosinophils Absolute Auto 100 /uL (0-450); Eosinophils Percent Auto 2.4 % (2-4); Hematocrit 24.4 % (41-53); Hemoglobin 8.1 g/dL (13.5-17.5); Lymphocytes Absolute Auto 1400 /uL (1100-4500); Lymphocytes Percent Auto 33.9 % (25-40); Mean Corpuscular HGB Conc 33.3 % (30-36); Mean Corpuscular Hemoglobin 24.7 PG (26-34); Mean Corpuscular Volume 74.2 fL (80-100); Monocytes Absolute Auto 500 /uL (0-900); Monocytes Percent Auto 12.2 % (3-14); Neutrophils Absolute Auto 2100 /uL (1500-7000); Neutrophils Percent Auto 51.1 % (50-75); Platelet Count 183 X10^3/uL (150-400); Red Blood Cell Count 3.28 X10^6/uL (4.5-5.9); Red Cell Distribution Width 15.6 % (11.6-14.8); White Blood Cell Count 4.1 X10^3/uL (4.5-11.0)
[2021-10-22 05:23] LABS: BUN Creatinine Ratio 26.3 (6-22); Blood Urea Nitrogen 15 mg/dL (9-20); Carbon Dioxide 28 mmol/L (22-32); Chloride 109 mmol/L (98-107); Estimated Glomerular Filt Rate > 60 mL/min (>60); Glucose 91 mg/dL (80-110); HEMOLYSIS < 15 (0-50); Magnesium 2.2 mg/dL (1.6-2.3); Potassium 3.7 mmol/L (3.4-5.1); Sodium 139 mmol/L (137-145)
--- NOTE | 2021-10-22 07:13 | PC.NURSE ---
End of Shift note. Care of patient from . Patient AAOX4, on RA, O2 Sats 97%, SR 70s. No BMs during this shift. Up to BR voiding with urinal. Uses call light appropriately. Walks with a cane. NPO for Egd today.
[2021-10-22] MEDS: PANTOPRAZOLE 40 MG VIAL IV (09:25)
--- NOTE | 2021-10-22 12:20 | CM.DANOTE ---
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 Appreciative of the visit today No needs expected from DC planning team although will remain available in case this changes before DC. BELLA Vanegas Discharge Planning/Care Management CM Discharge Assessment Start: 10/22/21 12:14 Freq: Status: Active Protocol: Document 10/22/21 12:14 REESE (Rec: 10/22/21 12:20 REESE [id number]) Discharge Planning Assessment Assigned Sound Assistant BELLA Ayon DPOA/Assigned Designee Name Marion Fam, spouse Contact Information [phone] Advance Directives? No History Provided By Patient Prior Living Arrangements House Household Members spouse Type of transporation used prior to Drives own vehicle admit Independent with ADL's Yes Is patient alert and oriented? Yes Barriers to Discharge No Discharge Plan Home Transportation Arrangement Spouse Referrals Initiated None needed
[2021-10-22] MEDS: LACTATED RINGERS 1,000 ML 42 ML IV (14:52)
--- NOTE | 2021-10-22 14:57 | SUR.HOLD ---
[id number] called at home. and notified patient in preop awaiting procedure,informed md will call post procedure. Patient will call after returns to room.
[2021-10-22] MEDS: LIDOCAINE 4% SOLN 50 ML 20 ML TOP (16:00)
--- NOTE | 2021-10-22 16:00 | P.CONS_ITS ---
History of Present Illness Consult details Date Patient Seen: 10/22/21 Chief complaint: Thinks ulcer- black stool, weak Narrative: 71-year-old man with a history of a Tonya-en-Y gastric bypass who is admitted to the hospital for anemia. He is having dark tarry stools per rectum. He has n ever been diagnosed with a a gastric ulcer but he presumes that he has had before. Meds Home Medications and Allergies Home Medications Medication Instructions Recorded Confirmed Type amlodipine 5 mg tablet 5 mg PO DAILY 01/02/21 10/21/21 History aspirin 81 mg tablet,delayed 81 mg PO DAILY 01/02/21 10/21/21 History release (Adult Aspirin Regimen) atorvastatin 40 mg tablet 40 mg PO DAILY 01/02/21 10/21/21 History lisinopril 5 mg tablet 5 mg PO BID 01/02/21 10/21/21 History metoprolol succinate 50 mg 50 mg PO DAILY 01/02/21 10/21/21 History tablet,extended release 24 hr qrfevwntmytt-ihw-vyoxl acid-vit 1 tab PO DAILY 01/02/21 10/21/21 History K-lycop 400 mcg-20 mcg-370 mcg tablet (Men's 50 Plus Multivitamin) omega-3 fatty acids 1,250 mg PO DAILY 01/02/21 10/21/21 History All Day Calcium 1 tab PO BID 10/21/21 10/21/21 History temazepam 30 mg capsule 30 mg PO BEDTIME PRN Sleep 10/21/21 10/21/21 History Allergies Allergy/AdvReac Type Severity Reaction Status Date / Time No Known Drug Allergies Allergy Unverified 01/02/21 13:35 Exam Vital Signs (past 8 hours): - 10/22/21 13:00 10/22/21 09:00 10/22/21 12:35 Temperature 97.1 F L Pulse Rate 70 Respiratory Rate 17 Blood Pressure 141/77 H Pulse Oximetry 100 97 100 Oxygen Delivery Method Room Air Room Air Oxygen Flow Rate 0 10/22/21 14:43 Temperature 96.7 F L Pulse Rate 60 Respiratory Rate 16 Blood Pressure 163/84 H Pulse Oximetry 99 Oxygen Delivery Method Room Air Oxygen Flow Rate Oxygen Delivery Method Room Air Oxygen Flow Rate 0 Narrative Exam Narrative: General adult male alert oriented no acute distress Chest nonlabored respirations Abdomen soft nontender nondistended Objective Labs Result Diagrams: 10/22/21 04:45 10/22/21 04:45 Labs: Laboratory Results - last 24 hr 10/21/21 10/22/21 10/22/21 20:13 04:45 04:45 WBC 4.1 L RBC 3.28 L Hgb 8.6 L 8.1 L Hct 26.5 L 24.4 L MCV 74.2 L MCH 24.7 L MCHC 33.3 RDW 15.6 H Plt Count 183 Neut % (Auto) 51.1 D Lymph % (Auto) 33.9 [place] % (Auto) 12.2 Eos % (Auto) 2.4 Baso % (Auto) 0.4 Neut # (Auto) 2100 Lymph # (Auto) 1400 [place] # (Auto) 500 Eos # (Auto) 100 Baso # (Auto) 0 Sodium 139 Potassium 3.7 Chloride 109 H Carbon Dioxide 28 BUN 15 Creatinine 0.57 L Estimated GFR > 60 BUN/Creatinine Ratio 26.3 H Glucose 91 Calcium 8.0 L Magnesium 2.2 PFSH Medical History Hyperlipidemia Hypertension Ventricular tachycardia Surgical History H/O gastric bypass H/O hernia repair H/O vasectomy History of lithotripsy Hx laparoscopic cholecystectomy Family History Father Hypertension Diabetes mellitus Cancer Brother Hypertension Social History marital status: household members: spouse occupational status: employed Tobacco & Substance Use Smoking Status: Never smoker alcohol intake: never Assessment & Plan Assessment and plan (1) Acute GI bleeding: Status: Acute Assessment & Plan narrative: 71-year-old man with history of a Tonya-en-Y gastric bypass and a GI bleed presumably upper. Will proceed with esophagoduodenoscopy for diagnostic and therapeutic purpose. Review of the procedure was discussed with the patient. Risks including bleeding, anesthetic complication, intestinal perforation were discussed. His questions have been answered and he is in agreement with this plan. Time Spent With Patient Critical Care time: I spent a total of [] minutes of critical care time on this patient's care today; this time is exclusive of procedural time.
[2021-10-22] MEDS: MIDAZOLAM 5 MG/5 ML VIAL 4 MG IV (16:05)
[2021-10-22] MEDS: fentaNYL 250 MCG/5 ML INJ 100 MCG IV (16:05)
--- NOTE | 2021-10-22 16:12 | PM.OP.EGD ---
Operative Date/Time/Diagnoses Date of procedure: 10/22/21 Time of procedure: 16:12 Pre-op diagnosis: GI bleed Post-op diagnosis: same Procedure & Clinicians Study performed: Esophagoduodenoscopy Same procedure as scheduled: Yes Indications: GI bleed. History of Tonya-en-Y gastric bypass Surgeon: Desmond Solis Procedure Notes Procedure in detail: Patient placed in left lateral decubitus position. Time out was performed. Procedural sedation was administered with Versed and Fentanyl. A bite block was placed. the scope was inserted into the mouth and advanced through the esophagus and into the stomach. There was no visible bleeding or gastritis in the stomach. There was adherent clot next to the gastrojejunostomy, which was not removed. The stomach was transversed into the small bowel which was normal. The scope was withdrawn into the esophagus the Z line was seen at 40 cm from the incisions. There was no Palmer's esophagitis or masses or strictures. Stomach was desufflated and scope removed. Patient tolerated procedure well. Specimen(s): none sent Complications: none Impression: resolved marginal ulcer Post-procedure Plan for aftercare: continue PPI avoid NSAIDs Disposition: Acute Care
--- NOTE | 2021-10-22 16:22 | SUR.PHASEI ---
Addendum entered by Noelle Ham R.N. 10/22/21 16:23: Patient dozing intermittently, arouses easily to voice. Original Note: Patient confirmed that he normally has an arrhythmia. Rhythm strip unchanged from the procedure.
--- NOTE | 2021-10-22 16:37 | SUR.PHASEI ---
Report called to DEIRDRE Medina
--- NOTE | 2021-10-22 17:01 | SUR.PHASEI ---
1640 to room 222 in wheelchair; glasses to room by AMENA Mares RN
--- NOTE | 2021-10-22 17:52 | PM.DS.1 ---
History of Present Illness History of Present Illness Date Patient Seen: 10/22/21 Time Patient Seen: 18:09 Chief complaint: Thinks ulcer- black stool, weak Narrative: This is a 71-year-old male with a past medical history of hypertension, hyperlipidemia, NSVT, and obesity with prior Georgi-en-Y gastric bypass who presents with 2 days of dark stools and a few weeks of generalized weakness. Patient states that he noticed some darkened stools 2 days ago, which turned to frankly black stool yesterday. He has not had a bowel movement since yesterday, and had some mild reflux symptoms over the last couple of days as well. He is also noticed some generalized fatigue over the past week or 2, and recent labs with his primary care provider noted a slight anemia as well. He reports prior colonoscopy 3 years ago which was unremarkable. He has never had an EGD after his Georgi-en-Y, and denies any known upper GI bleeding. He does endorse recent back surgery, with NSAID use only a couple of times about a month ago. He did note some possibly darkened stools after that and started a trial of omeprazole which improved his stool color at that time. He took approximately 14 days of omeprazole, ending a few weeks ago, and had a recurrence as noted above. He is not currently taking omeprazole. He denies any fevers, chills, chest pain, diaphoresis, shortness of breath, or dyspnea on exertion. He does note an increase in his restless leg syndrome symptoms over the past 4-5 weeks. In the emergency room, he was mildly hypertensive but the remainder of his vital signs were unremarkable. Initial laboratory evaluation was notable for a hemoglobin of 8.6 with a microcytic MCV, which down trended to 8.0 on repeat examination a few hours later. Coagulation studies were unremarkable. Chemistry panel was further unremarkable, including a negative troponin. COVID-[address] abdomen and pelvis was also performed which did not reveal any acute pathology. 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 Discharge Providers Provider Date of admission: 10/22/21 10:05 Discharge Date: 10/22/21 Primary care physician: Celio Kaplan MD Consults: 10/21/21 13:59 Consult to General Surgery Routine Comment: Consulting Provider: Desmond Solis Reason for consultation: UGI bleeding Discharge provider: Mesfin Mckenzie DO Summary Hospital Course Discharge Diagnosis: 1. Acute blood loss anemia, secondary to marginal ulcer due to likely NSAID use 2. history of georgi-en-y, obesity with BMI 42.8 3. HTN, chronic 4. HLD, chronic 5. History of NSVT Hospital Course: This is a 71-year-old male with a past medical history of hypertension, hyperlipidemia, prior and SVT, and prior Georgi-en-Y gastric bypass who was admitted for fatigue and melena. His hemoglobin on admission was noted to be 8.6, and he was given a dose of IV iron as the patient is a Confucianist and did not want blood transfusions. His hemoglobin over the course approximately 24 hours remained stable between 8.6 and 8.0. He was initially started on IV pantoprazole twice a day for presumed upper GI bleeding. He underwent an EGD with general surgery and he was noted to have a marginal ulcer with an adherent clot on EGD. He continued to have improvement in his melena over the course of admission, and only had 1 small bowel movement with an improvement in color and consistency. The patient was eating and tolerating a diet after his endoscopy. Discussed with the patient further inpatient management given the finding of an adherent clot and discharge home with precautions given his improvement in symptoms thus far and stable hemoglobin levels. Patient elected for discharge home at this time. He will be prescribed high-dose pantoprazole therapy to complete at least 1 month, with further treatment and follow-up recommended as an outpatient depending on his ongoing symptoms. I recommend a repeat CBC in 1-2 weeks to make sure there is improvement as an outpatient. He was counseled on return precautions including hematemesis or worsening of his melena. Time Spent with Patient Time spent: Greater than 30 minutes Exam Vital Signs (past 8 hours): - 10/22/21 13:00 10/22/21 17:00 10/22/21 17:00 Temperature 97.8 F Pulse Rate 71 Respiratory Rate 12 Blood Pressure 144/80 H Pulse Oximetry 100 96 96 Oxygen Delivery Method Room Air Room Air Oxygen Flow Rate 10/22/21 12:35 10/22/21 14:43 10/22/21 16:16 Temperature 97.1 F L 96.7 F L 97.3 F L Pulse Rate 70 60 70 Respiratory Rate 17 16 18 Blood Pressure 141/77 H 163/84 H 149/83 H Pulse Oximetry 100 99 96 Oxygen Delivery Method Room Air Room Air Oxygen Flow Rate 0 10/22/21 16:26 10/22/21 16:31 10/22/21 16:37 Temperature 97.8 F Pulse Rate 70 73 71 Respiratory Rate 16 16 12 Blood Pressure 139/85 150/76 H 144/80 H Pulse Oximetry 95 98 96 Oxygen Delivery Method Room Air Room Air Room Air Oxygen Flow Rate 10/22/21 16:20 Temperature Pulse Rate 66 Respiratory Rate 20 Blood Pressure 145/90 H Pulse Oximetry 94 Oxygen Delivery Method Room Air Oxygen Flow Rate Oxygen Delivery Method Room Air Oxygen Flow Rate 0 Narrative Exam Narrative: General:? Patient is well developed and well nourished, in no distress at this time. Slight pallor, obese with BMI 42.8. HEENT:? Normocephalic, atraumatic, extraocular muscles intact, oral pharynx is clear and mucous membranes are moist. Neck: supple and symmetric, trachea is midline, no cervical adenopathy. Chest:? Normal AP diameter and contour without kyphoscoliosis, no tachypnea, equal chest rise bilaterally. Lungs:? CTA b/l no wheezing rhonchi or rales. Cardio:?RRR no m/r/g. Abdomen: S NT ND. No CVA tenderness. Musculoskeletal:? Muscle strength and tone are equal within normal limits, no deformity. Extremities: No edema or joint effusions. No cyanosis or clubbing. Skin:? Pale,? Warm to touch,dry and intact without rashes, ulcerations or petechiae.? Neuro:? Alert and orientated x3,? sensation to touch intact in all extremities, no gross deficits noted of cranial nerves. Psych:? Patient has a well-kept appearance, appropriate affect, mental status attitude thought context and judgment are appropriate for age. Objective Labs Result Diagrams: 10/22/21 04:45 10/22/21 04:45 Labs: Laboratory Results - last 24 hr 10/21/21 10/22/21 10/22/21 20:13 04:45 04:45 WBC 4.1 L RBC 3.28 L Hgb 8.6 L 8.1 L Hct 26.5 L 24.4 L MCV 74.2 L MCH 24.7 L MCHC 33.3 RDW 15.6 H Plt Count 183 Neut % (Auto) 51.1 D Lymph % (Auto) 33.9 [place] % (Auto) 12.2 Eos % (Auto) 2.4 Baso % (Auto) 0.4 Neut # (Auto) 2100 Lymph # (Auto) 1400 [place] # (Auto) 500 Eos # (Auto) 100 Baso # (Auto) 0 Sodium 139 Potassium 3.7 Chloride 109 H Carbon Dioxide 28 BUN 15 Creatinine 0.57 L Estimated GFR > 60 BUN/Creatinine Ratio 26.3 H Glucose 91 Calcium 8.0 L Magnesium 2.2 PFSH Medical History Hyperlipidemia Hypertension Ventricular tachycardia Surgical History H/O gastric bypass H/O hernia repair H/O vasectomy History of lithotripsy Hx laparoscopic cholecystectomy Family History Father Hypertension Diabetes mellitus Cancer Brother Hypertension Social History marital status: household members: spouse occupational status: employed Smoking Status: Never smoker alcohol intake: never Discharge Plan Discharge Plan Patient Disposition: Home Provider Discharge Comment: You were admitted to the hospital with a bleeding marginal ulcer, this is due to likely combination of NSAID medication and your georgi-en-Y bypass. You had a clot, which indicates higher risk of re-bleeding so do not hesitate to return with worsening dark stools or vomiting blood. You were started on high dose pantoprazole therapy, and should continue for at least one month, please follow up with your PCP for further management moving forward. I also recommend stopping aspirin for now, with re-assessment with PMD as well in the near future. Discharge orders & Medications Prescriptions: New pantoprazole 40 mg tablet,delayed release (DR/EC) 40 mg PO BID 30 Days Qty: 60 0RF Continued lisinopril 5 mg tablet 5 mg PO BID metoprolol succinate 50 mg tablet extended release 24 hr 50 mg PO DAILY atorvastatin 40 mg tablet 40 mg PO DAILY amlodipine 5 mg tablet 5 mg PO DAILY Men's 50 Plus Multivitamin 400-20-370 mcg tablet 1 tab PO DAILY omega-3 fatty acids Capsule 1,250 mg PO DAILY temazepam 30 mg Capsule 30 mg PO BEDTIME PRN (Reason: Sleep) All Day Calcium 600 units 1 tab PO BID Discontinued aspirin [Adult Aspirin Regimen] 81 mg tablet,delayed release (DR/EC) 81 mg PO DAILY Follow up/Referrals: Celio Kaplan MD [Primary Care Provider] - Diet/Activity/Treatments Diet: Diet as Tolerated Activity: As tolerated Discharge Data Primary Care Provider: Celio Kaplan Quality VTE Deep Vein Thrombosis/Pulmonary Embolism Present on Admission: No
--- NOTE | 2021-10-22 18:21 | PC.NURSE ---
Addendum entered by Yari Waters R.N. 10/22/21 19:28: pt escorted via w/ch to private vehicle with for discharge home at approximately 1910 this evening. Original Note: Pt A&Ox3, VSS, afebrile on RA, NSR on telemetry. He denies SOB, or dizziness, or n/v. He has x1 formed dark stool this morning. He remains NPO this morning for EGD and is taken to pre op at 1430 and returns from EGD at 1650. He tolerates po dinner well, and per MD is cleared for discharge home this evening. He verbalizes understanding of discharge plan to stop NSAIDs, and baby aspirin and to continue PPI and follow up with PCP /ER with worsening symptoms.
== END 2021-10-22 19:10 | disposition home or self-care (01) | DRG 378 ==
LOC: ED 10:18 → AC 11:43
PROVIDERS: Internal Medicine; Surgery; Admitting Provider Student in an Organized Health Care Education/Training Program; Emergency Provider Emergency Medicine; PCP Family Medicine; Referring Provider Emergency Medicine; Visit Provider Student in an Organized Health Care Education/Training Program
PROC: 0DJ08ZZ Inspection of Upper Intestinal Tract, Via Natural or Artificial Opening Endoscopic (ICD-10-PCS; CPT 43235; principal; 2021-10-22 15:00)
DX: K25.4 Chronic or unspecified gastric ulcer with hemorrhage (principal); D62 Acute posthemorrhagic anemia; Z68.41 Body mass index [BMI] 40.0-44.9, adult; I47.2 Ventricular tachycardia; E66.9 Obesity, unspecified; I10 Essential (primary) hypertension; E78.5 Hyperlipidemia, unspecified; Z79.1 Long term (current) use of non-steroidal anti-inflammatories (NSAID); Z98.84 Bariatric surgery status; Z20.822 Contact with and (suspected) exposure to COVID-19
CPT/HCPCS: 36415; 43235; 74176; 80048; 80053; 82550; 83605; 83690; 83735; 84484; 85014; 85018; 85025; 85610; 85730; 87635; 93005; 93010; 96374; 99232; 99284; C9803; G0378; C9113; J1756; J2250; J3010

== ENCOUNTER → 2022-12-04 14:39 | Outpatient (CLI) | payer MEDICARE, OTHER, SELFPAY ==
[2021-10-21 12:05] VITALS: BMI 42.8
--- NOTE | 2022-12-04 | DI.RAD.S_ITS ---
PROCEDURE: XR CERVICAL SPINE 2V OR 3V INDICATIONS: Cervicalgia TECHNIQUE: 3 view(s) of the cervical spine were acquired. COMPARISON: None. FINDINGS: Bones: No fractures or dislocations to the T1 level. The lateral masses of C1 appear intact on the odontoid view. No suspicious bony lesions. Multilevel degenerative disc space loss, uncovertebral joint hypertrophy, and facet arthropathy. Soft tissues: No prevertebral soft tissue swelling. Bilateral carotid calcifications. IMPRESSION: Cervical spondylosis. ASCVD. Dictated by: Christopher Mar M.D. on 12/04/2022 at 16:26 Approved by: Christopher Mar M.D. on 12/04/2022 at 16:27
--- NOTE | 2022-12-04 | DI.RAD.S_ITS ---
PROCEDURE: XR CHEST 2V INDICATIONS: Cervicalgia TECHNIQUE: 2 views of the chest were acquired. COMPARISON: None. FINDINGS: Surgical changes and devices: None. Lungs and pleura: Minimal density medial right lung base may represent focal atelectasis versus infiltrate. No pleural effusions or pneumothorax. Mediastinum: Mediastinal contours are normal. Heart size is normal. Bones and chest wall: No suspicious bony abnormalities. Soft tissues appear unremarkable. IMPRESSION: Focal small atelectasis versus infiltrate, right lung base. Comment: Progress films are recommended until clear. Dictated by: Christopher Mar M.D. on 12/04/2022 at 16:25 Approved by: Christopher Mar M.D. on 12/04/2022 at 16:25
== END ==
PROVIDERS: PCP Family Medicine; Referring Provider Family Medicine; Visit Provider Family Medicine
DX: M54.2 Cervicalgia (principal); I10 Essential (primary) hypertension; M47.812 Spondylosis without myelopathy or radiculopathy, cervical region; I25.10 Atherosclerotic heart disease of native coronary artery without angina pectoris
CPT/HCPCS: 71046; 72040

== ENCOUNTER → 2024-06-06 11:30 | Outpatient (CLI) | payer MEDICARE, OTHER, SELFPAY ==
[2021-10-21 12:05] VITALS: BMI 42.8
--- NOTE | 2024-06-06 11:33 | DI.RAD.S_ITS ---
PROCEDURE: XR HIP W PEL IF DONE RT 2V INDICATIONS: FALL TECHNIQUE: AP pelvis with lateral view(s) of the right hip(s). COMPARISON: None. FINDINGS: Bones: Right hip hardware status post total hip arthroplasty without evidence of hardware complication. No fractures or dislocations. Pelvic ring appears intact. No suspicious bony lesions. Advanced degenerative changes are present within the left hip consisting of joint space narrowing, marginal osteophytosis and acetabular subchondral sclerosis. Incompletely visualized hardware within the inferior spine noted. Soft tissues: The visualized bowel gas pattern is normal. No suspicious soft tissue calcifications. IMPRESSION: Postsurgical and degenerative change without evidence of acute osseous abnormality or hardware complication. Dictated by: Дмитрий Russell M.D. on 06/06/2024 at 22:20 Approved by: Дмитрий Russell M.D. on 06/06/2024 at 22:23
--- NOTE | 2024-06-06 11:33 | DI.RAD.S_ITS ---
PROCEDURE: XR SHOULDER RT MIN 2V INDICATIONS: FALL TECHNIQUE: 3 views of the shoulder were acquired. COMPARISON: None. FINDINGS: Bones: No fractures or dislocations. Degenerative change of the shoulder includes a high-riding humeral head, moderate glenohumeral joint space loss with marginal osteophytosis and moderate hypertrophic acromioclavicular arthropathy. No suspicious bony lesions. Visualized ribs appear intact. Soft tissues: No suspicious soft tissue calcifications. IMPRESSION: Degenerative change without evidence of acute osseous abnormality. Dictated by: Дмитрий Russell M.D. on 06/06/2024 at 22:23 Approved by: Дмитрий Russell M.D. on 06/06/2024 at 22:24
== END ==
PROVIDERS: PCP Family Medicine; Referring Provider Family Medicine; Visit Provider Family Medicine
DX: M25.511 Pain in right shoulder (principal); M25.551 Pain in right hip; Z96.641 Presence of right artificial hip joint
CPT/HCPCS: 73030; 73502

== ENCOUNTER → 2024-08-04 10:23 | Outpatient (CLI) | payer MEDICARE, OTHER, SELFPAY ==
[2021-10-21 12:05] VITALS: BMI 42.8
--- NOTE | 2024-08-04 10:25 | DI.RAD.S_ITS ---
PROCEDURE: FL BARIUM SWALLOW W AIR COMPARISON: None. INDICATIONS: Dysphagia FINDINGS/IMPRESSION: Gastric bypass changes are noted. There is moderate to severe esophageal dysmotility, with poor primary peristaltic wave, resulting in reflux of contrast and tertiary contractions. Small hiatal hernia noted with Valsalva. Dictated by: Librado Ovalle M.D. on 08/04/2024 at 11:58 Approved by: Librado Ovalle M.D. on 08/04/2024 at 11:59
== END ==
PROVIDERS: PCP Family Medicine; Referring Provider Registered Nurse Medical-Surgical; Visit Provider Registered Nurse Medical-Surgical
DX: R13.19 Other dysphagia (principal); Z98.84 Bariatric surgery status; K44.9 Diaphragmatic hernia without obstruction or gangrene; K22.89 Other specified disease of esophagus
CPT/HCPCS: 74221

== ENCOUNTER → 2024-09-01 15:02 | Outpatient (CLI) | payer MEDICARE, OTHER, SELFPAY ==
[2021-10-21 12:05] VITALS: BMI 42.8
--- NOTE | 2024-09-01 15:06 | DI.MRI.S_ITS ---
PROCEDURE: MR SHOULDER RT WO CON INDICATIONS: SHOULDER PAIN TECHNIQUE: Noncontrast oblique coronal T2 fast spin echo with fat saturation, oblique sagittal T1 spin echo and T2 fast spin echo with fat saturation, axial T1 spin echo and T2 fast spin echo with fat saturation through the shoulder. COMPARISON: [facility], CR, XR SHOULDER 2+ VIEWS RIGHT, 08/23/2024, 14:49. FINDINGS: Image quality: Diagnostic Rotator cuff: Bulk: [id number] infraspinatus and supraspinatus atrophy. Mild teres minor atrophy. Teres minor: Intact Supraspinatus: Focal perforating defect in the anterior distal fibers. Moderate to high-grade articular sided tear is seen more posteriorly. Background mild tendinopathy. Insertional ganglions are present. Infraspinatus: Background tendinopathy with moderate grade articular sided tears and insertional ganglions. Small bursal sided defect also seen at the footplate Subscapularis: Moderate tendinopathy and small interstitial tear in the mid tendon Bones and bursae: GH joint: Small effusion. Moderate arthrosis with joint space narrowing cartilage heterogeneity AC joint: Moderate arthrosis Humeral head: No acute fracture. Insertional ganglions are seen at the greater tuberosity Scapula and acromion: Os acromiale. Bursa: [id number]-[id number] bursal edema Capsule: Labrum: Suspect superior posterior labral tear with evidence of scarring/remodeling. Long head biceps tendon: Small split tear extends into the biceps tendon. Effusion extends to the bicipital groove Background tendinopathy. IGHL: Intact Rotator interval: Partially effaced with edema Soft tissues: No axillary adenopathy. Lungs are not well seen. IMPRESSION: Moderate glenohumeral and acromioclavicular arthrosis. Small glenohumeral joint effusion. Ddgz-cy-tixgentf bursal edema extending from the effusion. Akxy-gd-popieaak rotator cuff muscle belly atrophy. Multifocal tears and tendinopathy of the rotator tendons, most notably with a focal full-thickness perforating defect in the anterior distal supraspinatus fibers. Suspect superior posterior labral tear with evidence of scarring/remodeling. Small split tear extends to the long head biceps tendon. Effusion extends to the bicipital groove. Os acromiale Dictated by: Kuldeep Davenport M.D. on 09/02/2024 at 11:28 Approved by: Kuldeep Davenport M.D. on 09/02/2024 at 11:35
== END ==
PROVIDERS: PCP Family Medicine; Referring Provider Orthopaedic Surgery; Visit Provider Orthopaedic Surgery
DX: S46.111A Strain of muscle, fascia and tendon of long head of biceps, right arm, initial encounter (principal); M75.121 Complete rotator cuff tear or rupture of right shoulder, not specified as traumatic; M19.011 Primary osteoarthritis, right shoulder; M25.411 Effusion, right shoulder; M62.511 Muscle wasting and atrophy, not elsewhere classified, right shoulder; M25.511 Pain in right shoulder; X58.XXXA Exposure to other specified factors, initial encounter
CPT/HCPCS: 73221

== ENCOUNTER → 2024-09-13 14:53 | Outpatient (CLI) | payer MEDICARE, SELFPAY ==
[2021-10-21 12:05] VITALS: BMI 42.8
--- NOTE | 2024-09-13 14:57 | DI.CT.S_ITS ---
PROCEDURE: CT KIDNEY URETER BLADDER (KUB) INDICATIONS: KIDNEY STONE TECHNIQUE: Axial sections were acquired from the lung bases to the pubic symphysis. Coronal and sagittal reformats were performed. For radiation dose reduction, the following was used: automated exposure control, adjustment of mA and/or kV according to patient size. COMPARISON: None. FINDINGS: Image quality: Diagnostic. Lower Chest: Heart is enlarged. Minimal right effusion. URINARY: Right Kidney: No hydronephrosis. Punctate inferior pole calcifications. Simple cysts. Right Ureter: No hydroureter. Left Kidney: No hydronephrosis. Punctate calcification. Exophytic 3 mm hyperdense focus laterally. Left Ureter: No hydroureter. Bladder: Normal wall thickness. No stones. ABDOMEN: Liver: No contour-deforming solid mass. Gallbladder: Removed. Biliary ducts: No biliary dilation. Pancreas: No ductal dilation. Spleen: Size is within normal limits. Adrenal Glands: No adrenal nodules. Stomach and Bowel: Normal colonic caliber, without significant wall thickening. Diverticula are present. Peritoneum: No abnormal intraperitoneal fluid. No free air. Ventral Wall: No hernia. Abdominal Nodes: No enlarged retroperitoneal or mesenteric lymph nodes. Vessels: Aorta and inferior vena cava are normal in size. PELVIS: Pelvic Organs: Unremarkable. Pelvic Nodes: Unremarkable. Miscellaneous: No inguinal hernias are seen. Bones: Right hip arthroplasty. L3 through L5 posterior fusion. IMPRESSION: No obstructing stones or hydronephrosis. Diverticulosis. Dictated by: Rosetta Allen M.D. on 09/14/2024 at 12:22 Approved by: Rosetta Allen M.D. on 09/14/2024 at 12:25
[2024-09-13 16:31] LABS: Estimated Glomerular Filt Rate > 60 mL/min (>60)
[2024-09-13 17:01] LABS: Prostate Specific Antigen < 0.064 ng/mL (0.10-4.00)
== END ==
LOC: CT 14:56
PROVIDERS: PCP Family Medicine; Referring Provider Nurse Practitioner; Visit Provider Nurse Practitioner
DX: N20.0 Calculus of kidney (principal); K57.90 Diverticulosis of intestine, part unspecified, without perforation or abscess without bleeding; R31.0 Gross hematuria; N40.1 Benign prostatic hyperplasia with lower urinary tract symptoms; I51.7 Cardiomegaly; J90 Pleural effusion, not elsewhere classified; Z96.641 Presence of right artificial hip joint; Z98.1 Arthrodesis status
CPT/HCPCS: 36415; 74176; 82565; 84153